=== PATIENT | male | born 1965 | race African-American/Black ===

== ENCOUNTER 2018-08-17 04:16 | Inpatient (IN) | payer OTHER ==
[~2018-08-17] VITALS: Ht 165.1 cm; Wt 52.2 kg
[2018-08-17] VITALS (38 sets, daily range): BP systolic 99–229; BP diastolic 64–142
[2018-08-17 04:28] LABS: BE(vivo) -9.1 mmol/L (-2 to +3); HCO3 28.4 mmol/L (22.0-26.0); PO2 313.9 mmHg (80.0-100.0); sO2 99.3 % (92.0-98.0)
[2018-08-17 04:29] LABS: pH 6.915 (7.360-7.450)
[2018-08-17 04:30] LABS: PCO2 143.2 mmHg (35.0-45.0)
[2018-08-17 04:44] LABS: ABSOLUTE NEUTROPHILS 4.5 thou/uL (1.4-8.2); BASOPHILS 1.1 % (0.0-2.0); EOSINOPHILS 6.1 % (0.0-3.0); HEMATOCRIT 46.6 % (42.0-52.0); HEMOGLOBIN 15.7 gm/dL (14.0-18.0); LYMPHOCYTES 38.4 % (24.0-44.0); MCH 34.1 pg (26.0-34.0); MCHC 33.6 g/dL (28.0-37.0); MCV 101.2 fL (80.0-100.0); MONOCYTES 10.8 % (1.0-8.0); PLATELET COUNT 359 thou/uL (150-400); POLYS 43.6 % (36.0-66.0); RDW 14.1 % (10.5-14.5); WBC 10.4 thou/uL (4.0-11.0)
[2018-08-17 04:54] LABS: ANION GAP 9 mmol/L (7-16); BUN 11 mg/dL (7-18); CALCIUM 8.9 mg/dL (8.5-10.1); CHLORIDE 100 mmol/L (98-107); CO2 27 mmol/L (21-32); CREATININE 1.2 mg/dL (0.7-1.3); GLUCOSE 215 mg/dL (74-106); POTASSIUM 4.1 mmol/L (3.5-5.1); SODIUM 136 mmol/L (136-145)
--- NOTE | 2018-08-17 05:02 | NUR ---
STARTED NITRO IV AT 50MCG/MIN, TITRATED DOWN TO 10MCG/MIN AFTER MAP HAD REACHED 120. AT 0445 THE MAP HAD INCREASED TO 133 AND INCREASED THE NITRO TO 20MCG/MIN. AT 0500 THE NITRO WAS TITRATED DOWN TO 10MCG/MIN.
[2018-08-17 05:04] LABS: ALBUMIN 4.2 g/dL (3.4-5.0); SGOT 35 U/L (15-37); SGPT 27 U/L (30-65); TOTAL BILIRUBIN 0.3 mg/dL (<0.1-1.0); TOTAL PROTEIN 8.1 g/dL (6.4-8.2); TROPONIN-I <0.06 ng/mL (<0.06)
[2018-08-17 05:05] LABS: BE(vivo) -8.1 mmol/L (-2 to +3); HCO3 24.3 mmol/L (22.0-26.0); PO2 284.4 mmHg (80.0-100.0); sO2 99.4 % (92.0-98.0)
[2018-08-17 05:06] LABS: PCO2 83.7 mmHg (35.0-45.0)
[2018-08-17 05:48] LABS: BE(vivo) -6.2 mmol/L (-2 to +3); HCO3 22.6 mmol/L (22.0-26.0); PCO2 57.8 mmHg (35.0-45.0); PO2 89.3 mmHg (80.0-100.0); sO2 94.9 % (92.0-98.0)
[2018-08-17 05:49] LABS: pH 7.211 (7.360-7.450)
--- NOTE | 2018-08-17 08:00 | NUR ---
PT IS AN ADMIT THIS AM FOR ACUTE HYPOIC RESPIRATORY FAILURE. HISTORY OF SMOKING, DRINKING, MJ AND COCAINE USE. ON BIPAP CURRENTLY AND OXYGEN SATURATION IS 98 PERCENT. LUNGS ARE CLEARM TO DIMINISHED. PT REPORTS SOB AT HOME AND HISTORY OF COPD AND ASTHMA INHALERS ARE NOT WORKING. ABDOMEN IS FLAT. BS POSTIVIE. SCDS ON BILATERAL. WILL COLLECT UA WHEN PT VOIDS AND SEND FOR UDS. COOPERATIVE AND APPROPRIATE AT THIS TIME. WILL CONTINUE TO ASSESS AND MONITOR PER NURSING
[2018-08-17 11:08] LABS: FOLIC ACID 42.7 ng/mL (8.6-58.9)
[2018-08-17 12:43] LABS: BE(vivo) -4.3 mmol/L (-2 to +3); HCO3 22.8 mmol/L (22.0-26.0); PCO2 49.5 mmHg (35.0-45.0); PO2 85.7 mmHg (80.0-100.0); sO2 95.3 % (92.0-98.0)
[2018-08-17 12:44] LABS: pH 7.282 (7.360-7.450)
[2018-08-17 15:10] LABS: URINE BILIRUBIN NEGATIVE (Negative); URINE BLOOD NEGATIVE (Negative); URINE CLARITY CLEAR; URINE COLOR YELLOW; URINE GLUCOSE-RANDOM* NEGATIVE (Negative); URINE KETONES NEGATIVE (Negative); URINE LEUKOCYTES NEGATIVE (Negative); URINE NITRITE NEGATIVE (Negative); URINE PROTEIN (DIPSTICK) 2+ (Negative); URINE SPECIFIC GRAVITY >= 1.030 (1.005-1.035); URINE UROBILINOGEN 0.2 E.U./dl (0.2-1.0)
--- NOTE | 2018-08-17 15:15 | EKG ---
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: selena : 1965 Requested By: Elba Crews Order Number: [id number] MD: Vidal Desouza Measurements Intervals [place] Rate: 117 P: 87 VT: 124 QRS: 21 QRSD: 75 T: 72 QT: 334 QTc: 466 Interpretive Statements Sinus tachycardia Poor R wave progression Nonspecific ST and T wave abnormality Compared to ECG 04/03/2001 11:28:59 Heart rate is increased Nonspecific change in the ST and T-wave segments Poor R wave progression is now present Electronically Signed On 08-17-2018 15:15:31 CDT by Vidal Desouza [email or web address] ��������������������������������������������� <ELECTRONICALLY SIGNED> ���������������������������������������� By: Vidal Desouza MD, [facility] ��������������������������������������������� 08/17/18 1515 0448 0448 Vidal Desouza MD, [facility] /EPI
[2018-08-17 15:17] LABS: AMP/METHAMP Negative (Negative); BARBITURATES Negative (Negative); BENZODIAZEPINES Negative (Negative); COCAINE POSITIVE (Negative); METHADONE Negative (Negative); OPIATES Negative (Negative); PCP Negative (Negative)
[2018-08-17] MEDS ORDERED: VENTOLIN HFA 1818 GM INH (15:17)
[2018-08-17] MEDS ORDERED: AMLODIPINE BESY10 MG PO (15:18)
[2018-08-17] MEDS ORDERED: INDOMETHACIN 5050 M1 PO (15:20)
[2018-08-17] MEDS ORDERED: ALBUTEROL2.5 MG/0.1 INH (15:26)
[2018-08-17 15:32] LABS: BACTERIA 1-9 Few /HPF (None Seen); CASTS None Seen /LPF (None Seen); CRYSTALS None Seen /LPF (None Seen); SQUAMOUS 0-3 Few /LPF (0-3); URINE RBC 0-2 Rare /HPF (0-2)
[2018-08-17 15:33] LABS: URINE WBC None Seen /HPF (0-5)
--- NOTE | 2018-08-17 16:36 | NUR ---
PT IS ALERT AND ORIENTED X4. ON BIPAP TODAY AND OXYGEN SATURATION 100 PERCENT. CAME IN FOR RESPIRATORY FAILURE. BREATHING TREATMENTS DONE. ABDOMEN IS SOFT AND BOWEL SOUNDS ACTIVE. SCDS ON BILATERAL. SEVERAL ALERGIES LISTED IN THE COMPUTER. OBTAINED FROM HIS DR. OFFICE BECAUSE HE COULD NOT REMEMBER HIS ALERGTIES. LUNGS ARE WHEEZZY. BANANA BAG GIVEN CIWA 0 . PT DRINKS EVERY DAY. NO TREMORS OR ANXIETY NOTED AT THIS TIME. WILL CONTINUE TO ASSESS AND MONITOR PER NURSING
--- NOTE | 2018-08-17 23:17 | NUR ---
PT AOX4. ON 4L HF, GIVEN A BREAK FROM THE BIPAP, STAT ABOVE 90% ON HF. ST ON MONITOR. VSS. AFEBRILE. VOIDS PER URINAL. PT EDUCATED ABOUT ALCOHOL CESSATION. PT STATED HE DRINK 1/2 PINT OF LETY DAILY. PT CURRENTLY IN BED. FALL PRECAUTIONS IN PLACE, REPORT GIVEN SUSY SCHULZ, WILL CONTINUE TO MONITOR PT.
[2018-08-18] VITALS (32 sets, daily range): BP systolic 104–183; BP diastolic 57–136
[2018-08-18 05:12] LABS: HEMATOCRIT 42.3 % (42.0-52.0); MCH 32.9 pg (26.0-34.0); MCHC 32.4 g/dL (28.0-37.0); MCV 101.4 fL (80.0-100.0); RBC 4.17 mil/uL (4.50-6.00); RDW 14.3 % (10.5-14.5); WBC 22.1 thou/uL (4.0-11.0)
[2018-08-18 05:13] LABS: BE(vivo) -4.6 mmol/L (-2 to +3); HCO3 21.5 mmol/L (22.0-26.0); PCO2 43.4 mmHg (35.0-45.0); sO2 98.2 % (92.0-98.0)
[2018-08-18 05:14] LABS: HEMOGLOBIN 13.7 gm/dL (14.0-18.0); PLATELET COUNT 230 thou/uL (150-400)
[2018-08-18 05:17] LABS: pH 7.313 (7.360-7.450)
--- NOTE | 2018-08-18 05:26 | NUR ---
ASSUMED PT CARE AT 2315 WITH REPORT TAKEN, NO SIGN OF DISTRESS NOTED IN PT, PT IS ALERT AND ORIENTED. SCHEDULED MEDS ALREADY ADMINISTERED. DENIES ANY NEEDS AT THIS TIME. BREATHING IS STABLE AND PT IS ON BIPAP THROUGHOUT THE NIGHT. PT IS STABLE ON THE BIPAP. DENIES ANY FURTHER NEEDS AT THIS TIME.
[2018-08-18 05:27] LABS: CALCIUM 9.1 mg/dL (8.5-10.1); CREATININE 1.2 mg/dL (0.7-1.3); MAGNESIUM 2.4 mg/dL (1.8-2.4)
[2018-08-18 05:39] LABS: ABSOLUTE NEUTROPHILS 20.6 thou/uL (1.4-8.2)
[2018-08-18 05:40] LABS: PLATELET ESTIMATE NORMAL
--- NOTE | 2018-08-18 13:27 | NUR ---
INITIAL ASSESSMENT: Pt evaluated for d/c planning needs. Reviewed chart and spoke with nurse and pt. Pt is alert and oriented. Pt lives in house with spouse and 3 children. Pt has cane and nebulizer at home. 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 Pt said he has gout and has a lot of stress in his personal life. Pt said he uses crack cocaine which he rolls up in his marijuana cigarettes and smokes while his children are not in the room. Pt plans on returning home on d/c from hospital. Will remain available to assist as needed.
[2018-08-19] VITALS (22 sets, daily range): BP systolic 96–182; BP diastolic 41–102
--- NOTE | 2018-08-19 05:34 | NUR ---
ASSUMED PT CARE AT 1900 WITH NO SIGN OF DISTRESS NOTED. PT IS ALERT AND ORIENTED. SCHEDULED MEDS ADMINISTERED TO PT. PT TOLERATED PO INTAKE. ASSESSMENT DOCUMENTED. PT IS STABLE AND OFF THE BIPAP. PT IS ON NASAL CANNULA. DENIES ANY FURTHER NEEDS AT THIS TIME.
--- NOTE | 2018-08-19 16:11 | NUR ---
ASSUMED CARE OF PT AT SHIFT CHANGE. ASSESSMENTS CHARTED. MEDS GIVEN PER JUN. PT ALERT AND ORIENTED, VSS, O2 SATS WNL ON ROOM AIR, PT GETTING SCHEDULED BREATHING TREATMENTS PER RT. PT UP AD SHOAIB, C/O PAIN, MANAGED WITH PO PAIN MEDS. APPETITE ADEQUATE. TRANSFER ORDERS FOR PT TO TELE, REPORT CALLED TO NURSE DE JESUS ON 3 AT APPROX 1545. PT TRANSFERRED TO [facility] BY NURSING STAFF AT APPROX 1600. TELE REMOVED, O2 MONITOR REMOVED. PT LEFT UNIT WITH ALL BELONGINGS.
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
[2018-08-20 00:35] VITALS: BP 152/82
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
[2018-08-20 05:30] VITALS: BP 150/79
[2018-08-20 07:09] VITALS: BP 148/98
[2018-08-20] MEDS ORDERED: NORCO 10-325 T1 EACH PO (10:12)
[2018-08-20] MEDS ORDERED: PREDNISONE 10 M10 MG PO (10:12)
--- NOTE | 2018-08-20 10:42 | NUR ---
PATIENT WILL BE DISCHARGED HOME AT THIS TIME. HE IS ALERT ORIENTED X4. PAIN MEDICATION ADMINISTERED EARLIER IS EFFECTIVE HE IS NOW SLEEPING. RESPIRATIONS NON LABORED. UP AD SHOAIB. FAMILY WILL BE HERE TO PICK HIM UP.
[2018-08-20 10:44] VITALS: BP 148/98
== END 2018-08-20 11:47 | disposition home or self-care (01) | DRG 189 ==
LOC: ER 04:16 → ICU 05:53 → EROBS 05:53 → ICU 06:36 → 3W 08-19 16:11
PROVIDERS: Internal Medicine Pulmonary Disease; Nurse Practitioner; Student in an Organized Health Care Education/Training Program; ADMIT Hospitalist
PROC: 5A09357 Assistance with Respiratory Ventilation, Less than 24 Consecutive Hours, Continuous Positive Airway Pressure (ICD-10-PCS; principal; 2018-08-17)
PROC: 5A09357 Assistance with Respiratory Ventilation, Less than 24 Consecutive Hours, Continuous Positive Airway Pressure (ICD-10-PCS; 2018-08-18)
DX: J96.21 Acute and chronic respiratory failure with hypoxia (principal); J44.1 Chronic obstructive pulmonary disease with (acute) exacerbation; J45.901 Unspecified asthma with (acute) exacerbation; Z68.1 Body mass index [BMI] 19.9 or less, adult; J96.22 Acute and chronic respiratory failure with hypercapnia; I16.0 Hypertensive urgency; I10 Essential (primary) hypertension; J45.909 Unspecified asthma, uncomplicated; M10.9 Gout, unspecified; F19.10 Other psychoactive substance abuse, uncomplicated; F17.210 Nicotine dependence, cigarettes, uncomplicated; Z79.899 Other long term (current) drug therapy
CPT/HCPCS: 10078; 10779

== ENCOUNTER 2018-10-10 21:24 | Inpatient (IN) | payer OTHER ==
[~2018-10-10] VITALS: Ht 165.1 cm; Wt 52.5 kg
[~2018-10-10 21:24] MED LIST: ALBUTEROL2.5 MG/0.1 INH; AMLODIPINE BESY10 MG PO; INDOMETHACIN 5050 M1 PO; NORCO 10-325 T1 EACH PO; PREDNISONE 10 M10 MG PO; VENTOLIN HFA 1818 GM INH
[2018-10-10 21:25] VITALS: BP 143/92
[2018-10-10 21:49] LABS: ABSOLUTE NEUTROPHILS 5.2 thou/uL (1.4-8.2); BASOPHILS 1.1 % (0.0-2.0); EOSINOPHILS 9.6 % (0.0-3.0); HEMATOCRIT 45.8 % (42.0-52.0); HEMOGLOBIN 15.3 gm/dL (14.0-18.0); LYMPHOCYTES 29.2 % (24.0-44.0); MCH 33.2 pg (26.0-34.0); MCHC 33.4 g/dL (28.0-37.0); MCV 99.3 fL (80.0-100.0); MONOCYTES 9.6 % (1.0-8.0); PLATELET COUNT 329 thou/uL (150-400); POLYS 50.5 % (36.0-66.0); RBC 4.61 mil/uL (4.50-6.00); RDW 14.2 % (10.5-14.5); WBC 10.4 thou/uL (4.0-11.0)
[2018-10-10 21:55] LABS: ANION GAP 8 mmol/L (7-16); BUN 19 mg/dL (7-18); CHLORIDE 100 mmol/L (98-107); CO2 28 mmol/L (21-32); CREATININE 1.2 mg/dL (0.7-1.3); GLUCOSE 102 mg/dL (74-106); SODIUM 136 mmol/L (136-145)
[2018-10-10 21:57] LABS: BE(vivo) 1.6 mmol/L (-2 to +3); PCO2 62.8 mmHg (35.0-45.0); sO2 70.1 % (92.0-98.0)
[2018-10-10 21:58] LABS: PO2 41.3 mmHg (80.0-100.0); pH 7.297 (7.360-7.450)
[2018-10-10 22:00] LABS: APTT 32.7 Seconds (24.5-32.8); INR 1.1
[2018-10-10 22:04] LABS: MAGNESIUM 2.1 mg/dL (1.8-2.4); SGOT 33 U/L (15-37); SGPT 32 U/L (30-65); TOTAL BILIRUBIN 0.3 mg/dL (<0.1-1.0); TROPONIN-I <0.06 ng/mL (<0.06)
[2018-10-10 22:31] LABS: AMP/METHAMP Negative (Negative); BARBITURATES Negative (Negative); BENZODIAZEPINES Negative (Negative); COCAINE POSITIVE (Negative); METHADONE Negative (Negative); OPIATES Negative (Negative); PCP Negative (Negative)
[2018-10-10 23:35] LABS: BE(vivo) -1.3 mmol/L (-2 to +3); HCO3 27.6 mmol/L (22.0-26.0); PCO2 64.5 mmHg (35.0-45.0); PO2 92.7 mmHg (80.0-100.0); sO2 95.7 % (92.0-98.0)
[2018-10-10 23:36] LABS: pH 7.249 (7.360-7.450)
[2018-10-11] VITALS (7 sets, daily range): BP systolic 116–155; BP diastolic 77–89
--- NOTE | 2018-10-11 00:17 | NUR ---
PT WAS QUESTIONED REGARDING FENTANYL ALLERGY PRIOR TO ADMINISTRATION. REPORTS HE HAS HAD IT WITHOUT COMPLICATIONS,
[2018-10-11] MEDS ORDERED: CREON DR 24,001 EACH PO (01:10)
[2018-10-11 04:01] LABS: CALCIUM 8.6 mg/dL (8.5-10.1); CREATININE 1.3 mg/dL (0.7-1.3); POTASSIUM 4.7 mmol/L (3.5-5.1)
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
--- NOTE | 2018-10-11 08:09 | NUR ---
PT ADMITTED FROM ER TO ROOM 212 WITH BANNANA BAG INFUSINGIN L FA, PT ON BIPAP SATATED HE IS FEELING MUCH BETTER EXPT FOR HIS PAIN PRN PAINS MEDS GIVEN ORDERED AND PT SLEEPING QUIETLY, VOIDING PER URINAL, VSS, CIWA ASSESSMENTS NEGATIVE, REPORT GIVEN TO NEXT SHIFT WILL CON'T TO MONITOR.
--- NOTE | 2018-10-11 12:54 | EKG ---
[place] [address] [place] [address] ELECTROCARDIOGRAM REPORT Name: LUDWIG DENG Room #: 212-P ADM IN M.R.#: [id number] ������������������ Admission: 10/10/18 ������������������ Attend Phys: Nichelle Vu Discharge: ������������������ Date of : 65 Report #: [id number] ����������������������������������������������������������������� [id number] THIS REPORT FOR: //name// [facility] ED Test Date: 2018-10-10 Test Time: 21:46:43 Pat Name: LUDWIG DENG Department: Room: 212 Gender: M Netting Weaver: [email or web address] : 1965 Requested By: Julio C Ernst Order Number: [id number] MD: Vidal Desouza Measurements Intervals [place] Rate: 98 P: 85 AR: 116 QRS: 14 QRSD: 86 T: 85 QT: 339 QTc: 433 Interpretive Statements Sinus rhythm Borderline short AR interval Nonspecific T wave abnormality Compared to ECG 08/17/2018 04:48:30 T-wave abnormality now present Sinus tachycardia no longer present Electronically Signed On 10-11-2018 12:54:19 CDT by Vidal Desouza [email or web address] ��������������������������������������������� <ELECTRONICALLY SIGNED> ���������������������������������������� By: Vidal Desouza MD, [facility] ��������������������������������������������� 10/11/18 1254 2146 2146 Vidal Desouza MD, [facility] /EPI
[2018-10-11] MEDS ORDERED: IPRAT-ALBUT 0.5-3 ML INH (14:49)
[2018-10-11] MEDS ORDERED: IBUPROFEN 400400 M2 PO (15:29)
[2018-10-12 04:11] VITALS: BP 159/84
--- NOTE | 2018-10-12 05:26 | NUR ---
ASSUMED PT CARE AT 1900 WITH NO SIGN OF DISTRESS NOTED. PT IS ALERT AND ORIENTED. ASSESSMENT COMPLETED AND CHARTED. SCHEDULED MEDS ADMINISTERED TO PT. DENIES ANY NEEDS. FALL PRECAUTION IN PLACE. VITAL SIGNS STABLE. PT IS ON OXYGEN. DENIES ANY FURTHER NEEDS AT THIS TIME
[2018-10-12 08:41] VITALS: BP 141/78
[2018-10-12 16:00] VITALS: BP 156/86
--- NOTE | 2018-10-12 16:15 | NUR ---
PT CARE ASSUMED APPROX 0700. PT ALERT AND ORIENTED X4. DENIES SOA. VSS. C/O CHRONIC PAIN TO NECK AND BACK. REPORTS ADEQUATE PAIN MANAGEMENT WITH MEDS AND REPOSITIONING. PT COMPLIANT WITH ALL CARES. UP INDEPENDENTLY. STEADY GAIT. NO S/S OF WITHDRAWL NOTED. TOLERATING POC. PT WEANED TO RA AND LIBERATED FROM BIPAP. NO DISTRESS NOTED.
--- NOTE | 2018-10-12 17:11 | NUR ---
met with patient he is independent with adls. Lives with has 3 children youngest in high school. he rec disability, usu goes to [place] but transferring care to [facility]. He has hx of smoking and reports he does use THC. 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 He reports less use at this time. Plan home independently. No needs from casemgt. Gave scheduling number as patient wants to have his colonoscopy here at [facility]. patient has nebulizer and inhalers at home. no further needs
[2018-10-12 21:01] VITALS: BP 159/83
[2018-10-13 04:10] LABS: CALCIUM 9.2 mg/dL (8.5-10.1); CREATININE 1.3 mg/dL (0.7-1.3); POTASSIUM 4.5 mmol/L (3.5-5.1)
[2018-10-13 04:24] LABS: HEMATOCRIT 41.1 % (42.0-52.0); HEMOGLOBIN 13.7 gm/dL (14.0-18.0); MCH 33.3 pg (26.0-34.0); MCHC 33.3 g/dL (28.0-37.0); RBC 4.11 mil/uL (4.50-6.00); RDW 14.3 % (10.5-14.5); WBC 26.2 thou/uL (4.0-11.0)
[2018-10-13 05:03] VITALS: BP 150/87
[2018-10-13 05:59] VITALS: BP 150/87
--- NOTE | 2018-10-13 06:00 | NUR ---
ASSUMED PT CARE AT 1900 WITH NO SIGN OF DISTRESS NOTED .PT IS STABLE. SCHEDULED MEDS ADMINISTERED TO PT, DENIES ANY NEED AT THIS TIME, PT IS WEANED OFF TO ROOM AIR, PT IS STABLE ON ROOM AIR. DENIES ANY NEED AT THIS TIME.
[2018-10-13 07:10] VITALS: BP 163/91
[2018-10-13] MEDS ORDERED: PREDNISONE 10 M10 MG PO (11:20)
[2018-10-13] MEDS ORDERED: CEFUROXIME500 MG PO (11:20)
[2018-10-13] MEDS ORDERED: VENTOLIN HFA 1818 GM INH (11:21)
[2018-10-13] MEDS ORDERED: MUCINEX600 MG PO (11:23)
[2018-10-13] MEDS ORDERED: AMLODIPINE BESY10 MG PO (11:23)
[2018-10-13] MEDS ORDERED: NORCO 10-325 T1 EACH PO (11:23)
[2018-10-13] MEDS ORDERED: CREON DR 24,001 EACH PO (11:24)
[2018-10-13] MEDS ORDERED: VITAMIN B-1100 M2 PO (11:24)
[2018-10-13 12:00] VITALS: BP 156/101
[2018-10-13 14:00] VITALS: BP 156/101
--- NOTE | 2018-10-13 14:20 | NUR ---
ASSESSMENT CHARTED, PATIENT ALERT AND ORIENTED, VSS, UP AD SHOAIB TO BATHROOM, PATIENT DISCHARGED TO HOME, GIVEN DISCHARGE INSTRUCTIONS AND PRESCRIPTIONS, STATED UNDERSTANDING. ESCORTED TO ER DEPT TO WAIT FOR CAB.
[2018-10-14 05:05] LABS: GLYCOHEMOGLOBIN (HGB A1C) 6.7 % (4.8-5.6)
[2018-10-14 23:06] LABS: ADENOVIRUS Negative (Negative); INFLUENZA A Negative (Negative); INFLUENZA B Negative (Negative); METAPNEUMOVIRUS Negative (Negative); PARAINFLUENZA 1 Negative (Negative); PARAINFLUENZA 2 Negative (Negative); PARAINFLUENZA 3 Negative (Negative); RHINOVIRUS Negative (Negative); RSV A Negative (Negative); RSV B Negative (Negative)
== END 2018-10-13 14:22 | disposition home or self-care (01) | DRG 189 ==
LOC: ER 21:24 → 2N 22:31 → EROBS 22:31 → 2N 10-11 00:39
PROVIDERS: Emergency Medicine; Hospitalist; Internal Medicine; Nurse Practitioner Acute Care; Nurse Practitioner Family; ADMIT Hospitalist
PROC: 5A09357 Assistance with Respiratory Ventilation, Less than 24 Consecutive Hours, Continuous Positive Airway Pressure (ICD-10-PCS; principal; 2018-10-10)
PROC: 5A09357 Assistance with Respiratory Ventilation, Less than 24 Consecutive Hours, Continuous Positive Airway Pressure (ICD-10-PCS; 2018-10-11)
DX: J96.21 Acute and chronic respiratory failure with hypoxia (principal); K86.1 Other chronic pancreatitis; J44.1 Chronic obstructive pulmonary disease with (acute) exacerbation; M35.1 Other overlap syndromes; J45.909 Unspecified asthma, uncomplicated; M10.9 Gout, unspecified; I10 Essential (primary) hypertension; F10.10 Alcohol abuse, uncomplicated; F12.90 Cannabis use, unspecified, uncomplicated; F14.90 Cocaine use, unspecified, uncomplicated; F17.210 Nicotine dependence, cigarettes, uncomplicated; J96.22 Acute and chronic respiratory failure with hypercapnia; F19.10 Other psychoactive substance abuse, uncomplicated; Z71.51 Drug abuse counseling and surveillance of drug abuser; Z88.6 Allergy status to analgesic agent; Z88.8 Allergy status to other drugs, medicaments and biological substances; Z79.82 Long term (current) use of aspirin; Z79.899 Other long term (current) drug therapy
CPT/HCPCS: 10081

== ENCOUNTER 2019-11-22 09:40 | Emergency (ER) | payer OTHER ==
[~2019-11-22] VITALS: Ht 165.1 cm; Wt 45.8 kg
[~2019-11-22 09:40] MED LIST changes: +CEFUROXIME500 MG PO; +CREON DR 24,001 EACH PO; +IBUPROFEN 400400 M2 PO; +IPRAT-ALBUT 0.5-3 ML INH; +MUCINEX600 MG PO; +VITAMIN B-1100 M2 PO
[2019-11-22 10:35] LABS: ABSOLUTE NEUTROPHILS 3.9 thou/uL (1.4-8.2); BASOPHILS 0.5 % (0.0-2.0); EOSINOPHILS 2.1 % (0.0-3.0); HEMATOCRIT 43.2 % (42.0-52.0); HEMOGLOBIN 14.5 gm/dL (14.0-18.0); LYMPHOCYTES 23.1 % (24.0-44.0); MCH 35.5 pg (26.0-34.0); MCHC 33.7 g/dL (28.0-37.0); MCV 105.6 fL (80.0-100.0); MONOCYTES 10.9 % (1.0-8.0); PLATELET COUNT 176 thou/uL (150-400); POLYS 63.4 % (36.0-66.0); RBC 4.09 mil/uL (4.50-6.00); RDW 14.5 % (10.5-14.5); WBC 6.1 thou/uL (4.0-11.0)
[2019-11-22 10:36] LABS: ANION GAP 10 mmol/L (7-16); BUN 12 mg/dL (7-18); CHLORIDE 101 mmol/L (98-107); CO2 29 mmol/L (21-32); CREATININE 1.5 mg/dL (0.7-1.3); GLUCOSE 236 mg/dL (74-106); POTASSIUM 3.8 mmol/L (3.5-5.1); SODIUM 140 mmol/L (136-145)
[2019-11-22 10:45] LABS: APTT 29.2 Seconds (24.5-32.8); INR 1.1; PROTIME 10.9 Seconds (9.3-11.4); TROPONIN-I <0.06 ng/mL (<0.06)
[2019-11-22] MEDS ORDERED: METFORMIN HCL500 M3 PO (11:18)
[2019-11-22] MEDS ORDERED: LIPITOR40 MG PO (11:18)
[2019-11-22] MEDS ORDERED: FOLIC ACID1 MG PO (11:18)
[2019-11-22] MEDS ORDERED: VITAMIN B-121000 MC2 PO (11:19)
--- NOTE | 2019-11-22 15:50 | EKG ---
[facility] [place] [address] ELECTROCARDIOGRAM REPORT Name: LUDWIG DENG Room #: [facility]#: [id number] Admission: 11/22/19 Attend Phys: Discharge: Date of : 65 Report #: [id number] THIS REPORT FOR: cc: Roseanna Barrera K. 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[employer] : 1965 Requested By: Allen Maxwell Order Number: [id number] MD: Miguel Donis Measurements Intervals [place] Rate: 86 P: 77 CO: 127 QRS: 52 QRSD: 88 T: 80 QT: 360 QTc: 431 Interpretive Statements Sinus rhythm Anterior infarct, old Nonspecific T abnormalities, lateral leads Compared to ECG 10/10/2018 21:46:43 Myocardial infarct finding now present T-wave abnormality still present Electronically Signed On 11-22-2019 15:50:45 CDT by Miguel Donis [email or web address] <ELECTRONICALLY SIGNED> By: Miguel Donis MD 11/22/19 1550 1035 1035 Miguel Donis MD /EPI
[2019-11-22] MEDS ORDERED: PREDNISONE 20 M20 MG PO (16:26)
[2019-11-22] MEDS ORDERED: NORCO 5-325 TA1 EAC2 PO (16:26)
[2019-11-22 22:12] VITALS: BP 165/91
== END 2019-11-22 17:55 | disposition home or self-care (01) ==
LOC: ER 09:40
PROVIDERS: Emergency Medicine
DX: R19.7 Diarrhea, unspecified (principal); R10.30 Lower abdominal pain, unspecified; J44.9 Chronic obstructive pulmonary disease, unspecified; I10 Essential (primary) hypertension; M10.9 Gout, unspecified; Z79.899 Other long term (current) drug therapy; Z79.1 Long term (current) use of non-steroidal anti-inflammatories (NSAID); Z88.6 Allergy status to analgesic agent; Z88.8 Allergy status to other drugs, medicaments and biological substances

== ENCOUNTER → 2020-01-12 | Outpatient (CLI) | payer OTHER ==
[~2020-01-12] MED LIST changes: +FOLIC ACID1 MG PO; +LIPITOR40 MG PO; +METFORMIN HCL500 M3 PO; +NORCO 5-325 TA1 EAC2 PO; +PREDNISONE 20 M20 MG PO; +VITAMIN B-121000 MC2 PO
== END ==
LOC: LAB 12:00
PROVIDERS: ATTEND Anesthesiology
DX: Z01.812 Encounter for preprocedural laboratory examination (principal); Z20.828 Contact with and (suspected) exposure to other viral communicable diseases

== ENCOUNTER 2020-06-07 11:40 | Emergency (ER) | payer OTHER ==
[~2020-06-07] VITALS: Ht 165.1 cm; Wt 42.2 kg
[2020-06-07 12:01] LABS: URINE BILIRUBIN NEGATIVE (Negative); URINE BLOOD NEGATIVE (Negative); URINE CLARITY CLEAR; URINE COLOR YELLOW; URINE GLUCOSE-RANDOM* NEGATIVE (Negative); URINE KETONES NEGATIVE (Negative); URINE LEUKOCYTES-REFLEX NEGATIVE (Negative); URINE NITRITE-REFLEX NEGATIVE (Negative); URINE PROTEIN (DIPSTICK) NEGATIVE (Negative); URINE SPECIFIC GRAVITY 1.025 (1.005-1.035)
[2020-06-07 12:58] LABS: ABSOLUTE NEUTROPHILS 3.7 thou/uL (1.4-8.2); EOSINOPHILS 6.4 % (0.0-3.0); HEMATOCRIT 40.8 % (42.0-52.0); HEMOGLOBIN 13.6 gm/dL (14.0-18.0); LYMPHOCYTES 25.7 % (24.0-44.0); MCH 34.9 pg (26.0-34.0); MCHC 33.4 g/dL (28.0-37.0); MCV 104.3 fL (80.0-100.0); MONOCYTES 8.6 % (1.0-8.0); PLATELET COUNT 189 thou/uL (150-400); POLYS 58.3 % (36.0-66.0); RBC 3.91 mil/uL (4.50-6.00); RDW 14.9 % (10.5-14.5); WBC 6.4 thou/uL (4.0-11.0)
[2020-06-07 13:09] LABS: CALCIUM 8.8 mg/dL (8.5-10.1); CREATININE 1.4 mg/dL (0.7-1.3); POTASSIUM 4.3 mmol/L (3.5-5.1)
[2020-06-07 13:15] LABS: ALBUMIN 3.7 g/dL (3.4-5.0); TOTAL BILIRUBIN 1.4 mg/dL (0.2-1.0); TOTAL PROTEIN 6.5 g/dL (6.4-8.2)
[2020-06-07 14:30] VITALS: BP 123/70
== END 2020-06-07 14:38 | disposition home or self-care (01) ==
LOC: ER 11:40
PROVIDERS: Emergency Medicine
DX: R19.00 Intra-abdominal and pelvic swelling, mass and lump, unspecified site (principal); R53.83 Other fatigue; R63.4 Abnormal weight loss; J44.9 Chronic obstructive pulmonary disease, unspecified; I10 Essential (primary) hypertension; F17.210 Nicotine dependence, cigarettes, uncomplicated; Z68.1 Body mass index [BMI] 19.9 or less, adult; Z79.899 Other long term (current) drug therapy; Z88.6 Allergy status to analgesic agent; Z88.8 Allergy status to other drugs, medicaments and biological substances

== ENCOUNTER → 2020-06-07 | Outpatient (CLI) | payer OTHER | LOC: CAT 08:40 | PROVIDERS: ATTEND Family Medicine | DX: K80.20 Calculus of gallbladder without cholecystitis without obstruction (principal); R79.89 Other specified abnormal findings of blood chemistry; R63.4 Abnormal weight loss; K86.1 Other chronic pancreatitis ==

== ENCOUNTER → 2020-08-14 | Outpatient (CLI) | payer OTHER ==
[2020-08-14 10:37] LABS: CREATININE 1.2 mg/dL (0.7-1.3)
== END ==
LOC: MRI 08:55 → ULTRA 09:45
PROVIDERS: ATTEND Family Medicine
DX: R10.9 Unspecified abdominal pain (principal); R79.89 Other specified abnormal findings of blood chemistry

== ENCOUNTER → 2020-08-20 | Outpatient (CLI) | payer OTHER | LOC: ULTRA 08-16 12:21 | PROVIDERS: ATTEND Family Medicine | DX: I70.0 Atherosclerosis of aorta (principal); I70.8 Atherosclerosis of other arteries; R10.9 Unspecified abdominal pain; R79.89 Other specified abnormal findings of blood chemistry; K86.1 Other chronic pancreatitis; K86.89 Other specified diseases of pancreas; K80.20 Calculus of gallbladder without cholecystitis without obstruction; K83.8 Other specified diseases of biliary tract ==

== ENCOUNTER → 2020-09-25 | Outpatient (CLI) | payer OTHER | LOC: MRI 09-17 11:31 | PROVIDERS: ATTEND Family Medicine | DX: K86.89 Other specified diseases of pancreas (principal); R63.4 Abnormal weight loss ==

== ENCOUNTER 2020-11-30 22:09 | Observation (INO) | payer OTHER ==
[~2020-11-30] VITALS: Ht 165.1 cm; Wt 56.7 kg
--- NOTE | ~2020-11-30 | EMS ---
[place] [id number] [facility] Patient Care Report Name: LUDWIG DENG Room #: 458-P [facility]#: [id number] Admission: 12/01/20 Attend Phys: Edilberto Murphy MD Discharge: 12/02/20 Date of : 65 Report #: [id number] THIS REPORT FOR: //name// Report Transmitted: 12/03/2020 11:26 EMS Care Summary [place], [place] Incident [id number] @ 11/30/2020 21:37 Incident [address] [place] [address] Patient SOURAV DENG Male, 55 Years 1965 Patient Address [address] [place] [address] Patient History Chronic Obstructive Pulmonary Disease (COPD),Hypertension (HTN),Pancreatitis, Patient Allergies Toradol,Tramadol, Patient Medications Gabapentin, Lisinopril, Folic acid, Chief Complaint Chest Pain Disposition Transported No Lights/[place] Dispatch Reason Chest Pain (Non-Traumatic) Transported To [facility] Narrative pt states that he has been having c/p since this morning. pt states that his pain started about 1312-4021. pt describes his pain as crushing in nature. pain radiates to pts right arm and back.pt states that he took 324mg of aspirin about an hour prior to ems arrival. pt states that he has had this type of pain [address] [place] [address] EMS Patient Care Report Name: LUDWIG DENG Room #: 458-[facility]..#: [id number] Admission: 12/01/20 Attend Phys: Edilberto Murphy MD Discharge: 12/02/20 Date of : 65 Report #: [id number] before just not this intense. upon ems arrival, pt found sitting upright on couch. pt w/ p42 crew. pt assisted to stretcher by ems and p42 crew. pt secured to stretcher using seat belts. Initial Vitals @21:51P: 91,CO: 4,SpO2: 99,MS Suspected: true @22:04P: 99,BP: 158/83,SpO2: 100, @22:03P: 101,CO: 5,SpO2: 99, @21:52P: 88, @21:47R: 18,BP: 171/88,Pain: 10/10,GCS: 15,SpO2: 94,Revised Trauma: 12, Assessments @21:44MENTAL:Time Oriented,Person Oriented,Place Oriented,Event Oriented,SKIN:HEENT:Eyes: Right Pupil: 3-mm,Eyes: Left Pupil: 3-mm,LUNG SOUNDS:ABDOMEN:PELVIS//GI:EXTREMITIES:Capillary Refill: Left Upper: < 2 Sec,PULSE:Radial: 2+ Normal,NEURO: Impression Chest Pain / Discomfort Procedures @21:44ALS AssessmentResponse: UnchangedSucceeded@21:54Saline Lock 10cc (18 ga) Site: Antecubital-LeftResponse: UnchangedSucceeded@21:56Nitrostat - 0.4 Milligrams (mg) - SublingualResponse: Unchanged@21:5112-Lead ECGResponse: UnchangedFailed@21:5212-Lead ECGResponse: UnchangedSucceeded Timeline 21:36,Call Received 21:36,Dispatch Notified 21:37,Dispatched 21:37,En Route 21:42,On Scene 21:44,At Patient 21:44,ALS Assessment,Response: UnchangedSucceeded, 21:47,BP: 171/88 M,PULSE: ,RR: 18 R,SPO2: 94 Ox,ETCO2: ,BG: ,PAIN: 10,GCS: 15, 21:51,12-Lead ECG,Response: UnchangedFailed, 21:51,BP: / M,PULSE: 91,RR: R,SPO2: 99 Ox,ETCO2: ,BG: ,PAIN: ,GCS: , 21:52,12-Lead ECG,Response: UnchangedSucceeded, 21:52,BP: / M,PULSE: 88,RR: R,SPO2: Ox,ETCO2: ,BG: ,PAIN: ,GCS: , 21:54,Depart Scene 21:54,Saline Lock 10cc 18 ga Site: Antecubital-Left,Response: UnchangedSucceeded, 21:56,Nitrostat - 0.4 Milligrams (mg) - Sublingual,Response: Unchanged 22:03,BP: / M,PULSE: 101,RR: R,SPO2: 99 Ox,ETCO2: ,BG: ,PAIN: ,GCS: , [address] [address] EMS Patient Care Report Name: LUDWIG DENG Room #: 458-P [facility] Eleni MLuis AlbertoRLuis Alberto#: [id number] Admission: 12/01/20 Attend Phys: Edilberto Murphy MD Discharge: 12/02/20 Date of : 65 Report #: [id number] 22:04,BP: 158/83 M,PULSE: 99,RR: R,SPO2: 100 Ox,ETCO2: ,BG: ,PAIN: ,GCS: , 22:05,At Destination 22:19,Call Closed Disclaimer v1.1 Copyright 2020 [employer] This EMS Care Summary contains data elements from the applicable legal record (which may be displayed differently). It is designed to provide pertinent information for the following purposes: continuity of care, clinical quality, and state data reporting. The complete legal record is available to ED staff and administrators of the receiving hospital in [employer] Patient Tracker. All data is provided "as is."
[2020-11-30 22:10] VITALS: BP 158/98
[2020-11-30 23:19] LABS: ABSOLUTE NEUTROPHILS 6.9 thou/uL (1.4-8.2); BASOPHILS 0.5 % (0.0-2.0); EOSINOPHILS 2.9 % (0.0-3.0); HEMATOCRIT 39.8 % (42.0-52.0); HEMOGLOBIN 13.1 gm/dL (14.0-18.0); LYMPHOCYTES 18.4 % (24.0-44.0); MCH 34.3 pg (26.0-34.0); MCHC 32.8 g/dL (28.0-37.0); MCV 104.6 fL (80.0-100.0); MONOCYTES 14.4 % (1.0-8.0); PLATELET COUNT 305 thou/uL (150-400); POLYS 63.8 % (36.0-66.0); RBC 3.81 mil/uL (4.50-6.00); RDW 15.3 % (10.5-14.5); WBC 10.9 thou/uL (4.0-11.0)
[2020-12-01 02:37] LABS: HEMATOCRIT 36.7 % (42.0-52.0); HEMOGLOBIN 12.3 gm/dL (14.0-18.0); MCH 34.6 pg (26.0-34.0); MCHC 33.5 g/dL (28.0-37.0); MCV 103.4 fL (80.0-100.0); RBC 3.55 mil/uL (4.50-6.00); RDW 15.3 % (10.5-14.5); WBC 13.6 thou/uL (4.0-11.0)
[2020-12-01 02:58] LABS: ALBUMIN 3.2 g/dL (3.4-5.0); CALCIUM 8.7 mg/dL (8.5-10.1); TOTAL BILIRUBIN 0.5 mg/dL (0.2-1.0); TOTAL PROTEIN 6.8 g/dL (6.4-8.2)
[2020-12-01 03:01] LABS: POTASSIUM 2.9 mmol/L (3.5-5.1)
[2020-12-01 08:28] LABS: CHOLESTEROL 134 mg/dL (<200); HDL CHOLESTEROL 69 mg/dL (>40); LDL CHOLESTEROL 56 mg/dL (<100); TC:HDL 1.9 Ratio (Not establshd); TRIGLYCERIDE 48 mg/dL (<150); VLDL 10 mg/dL (<40)
[2020-12-01 08:59] LABS: CALCIUM 8.5 mg/dL (8.5-10.1); CREATININE 1.2 mg/dL (0.7-1.3); POTASSIUM 3.6 mmol/L (3.5-5.1)
[2020-12-01 16:39] VITALS: BP 146/75
[2020-12-01 17:20] VITALS: BP 144/91
--- NOTE | 2020-12-01 20:06 | NUR ---
PT TRANFERRED FROM ed INTO ROOM 458. c/o CHEST PAIN RUNNING NS RYTHYM. MEDICATED FOR PAIN. BED IN LOW POSITION FALL PRECAUTIONS IN PLACE. cALL LIGHT WITHIN REACH.
[2020-12-01 20:33] VITALS: BP 148/93
--- NOTE | 2020-12-02 03:07 | NUR ---
PT CARE ASSUMED WITH PT IN BED WATCHING TV.PT AGITATED BECAUSE OF PAIN AND ITCHING.PT IS A/O X4.PT ADMISSION DONE AND ADMISSION ASSESSMENT DONE .PT IS UP WITH STANDBY ASSIST.PT C/O PAIN AND PAIN MANAGED WITH MORPHINE AND TYLENOL.PT PT ALSO USES THE URINAL TO VOID.PT NPO FROM MIDNIGHT WITH SIPS OF FLUID WITH MEDICATION.WILL CONTINUE TO MONITOR PER POC
--- NOTE | 2020-12-02 07:25 | EKG ---
[address] [place] [address] ELECTROCARDIOGRAM REPORT Name: LUDWIG DENG Room #: 458-P [facility]..#: [id number] Admission: 12/01/20 Attend Phys: Edilberto Murphy MD Discharge: Date of : 65 Report #: [id number] 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 : 1965 Requested By: Abel Topete Order Number: [id number] : Robson Santana Measurements Intervals [place] Rate: 118 P: 58 CO: 127 QRS: 37 QRSD: 75 T: 72 QT: 302 QTc: 424 Interpretive Statements Sinus tachycardia Multiple ventricular premature complexes Compared to ECG 11/22/2019 10:35:45 Ventricular premature complex(es) now present Sinus rhythm no longer present Myocardial infarct finding no longer present T-wave abnormality no longer present Electronically Signed On 12-02-2020 7:25:21 CDT by Robson Santana [email or web address] <ELECTRONICALLY SIGNED> By: Robson Santana MD, [facility] 12/02/20 0725 0326 0326 Robson Santana MD, [facility] /EPI
--- NOTE | 2020-12-02 07:28 | EKG ---
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: matt moura : 1965 Requested By: Ron Fowler Order Number: [id number] MD: Robson Santana Measurements Intervals [place] Rate: 88 P: 86 IA: 128 QRS: 17 QRSD: 86 T: 62 QT: 374 QTc: 453 Interpretive Statements Sinus rhythm Anterior infarct, old Compared to ECG 11/22/2019 10:35:45 T-wave abnormality no longer present Myocardial infarct finding still present Electronically Signed On 12-02-2020 7:28:23 CDT by Robson Santana [email or web address] <ELECTRONICALLY SIGNED> By: Robson Santana MD, [facility] 12/02/2028 2220 19 Robson Santana MD, [facility] /EPI
[2020-12-02 07:37] VITALS: BP 138/72
[2020-12-02 08:44] LABS: HEMATOCRIT 39.5 % (42.0-52.0); HEMOGLOBIN 12.8 gm/dL (14.0-18.0); MCHC 32.4 g/dL (28.0-37.0); MCV 104.9 fL (80.0-100.0); RBC 3.77 mil/uL (4.50-6.00); RDW 15.4 % (10.5-14.5); WBC 7.1 thou/uL (4.0-11.0)
[2020-12-02 09:04] LABS: CALCIUM 9.2 mg/dL (8.5-10.1); CREATININE 1.1 mg/dL (0.7-1.3); POTASSIUM 3.5 mmol/L (3.5-5.1)
--- NOTE | 2020-12-02 09:19 | 2DMMODE ---
[facility] [place] [address] 2 D/M-MODE ECHOCARDIOGRAM Name: LUDWIG DENG Room #: 458-P [facility] M.R.#: [id number] Admission: 12/01/20 Attend Phys: Edilberto Murphy MD Discharge: Date of : 65 Report #: [id number] THIS REPORT FOR: cc: Edilberto Murphy MD, Neal A. MD Lammoglia, Francisco J. MD ~ APPROVED REPORT Study performed: 12/01/2020 10:29:53 EXAM: Comprehensive 2D, Doppler, and color-flow Echocardiogram Patient Location: Bedside Room #: ER 10 Status: on-call BSA: 1.62 HR: 80 bpm BP: 132/84 mmHg Rhythm: NSR Other Information Study Quality: Adequate Technically limited study due to lung disease, inability to position patient. Indications COPD Chest Pain Hypertension/HDD HLD 2D Dimensions RVDd: 28.20 mm IVSd: 7.11 (7-11mm) LVOT Diam: 17.80 (18-24mm) LVDd: 40.01 mm PWd: 8.47 (7-11mm) LVDs: 24.90 (25-40mm) Aortic Root: 28.48 mm IVC: 14.00 mm Volumes Left Atrial Volume (Systole) Single Plane 4CH: 41.68 mL Single Plane 2CH: 26.35 mL LA ESV Index: 24.00 mL/m2 Aortic Valve [facility] [employer] [address] [place] [address] 2 D/M-MODE ECHOCARDIOGRAM Name: LUDWIG DENG Room #: 458-P ADM IN M.R.#: [id number] Admission: 12/01/20 Attend Phys: Edilberto Murphy, Discharge: Date of : 65 Report #: [id number] AoV Peak Sergei.: 1.54 m/s AO Peak Gr.: 9.45 mmHg LVOT Max P.05 mmHg LVOT Max V: 0.87 m/s [place] Vmax: 1.41 cm2 AI Vmax: 3.86 m/s AI [place]: 2.80 m/s2 AI PHT: 398.67 ms Mitral Valve E/A Ratio: 1.9 MV Decel. Time: 149.78 ms MV E Max Sergei.: 0.83 m/s MV A Sergei.: 0.44 m/s MV PHT: 43.43 ms IVRT: 48.44 ms Pulmonary Valve PV Peak Sergei.: 0.97 m/s PV Peak Gr.: 3.78 mmHg Pulmonary Vein P Vein S: 0.27 m/s P Vein A: 0.20 m/s P Vein D: 0.61 m/s P Vein A Dur.: 93.4 msec P Vein S/D Ratio: 0.44 Tricuspid Valve RAP Estimate: 5.00 mmHg Left Ventricle The left ventricle is normal size. There is normal LV segmental wall motion. There is normal left ventricular wall thickness. The left ventricular systolic function is normal. The left ventricular ejection fraction is within the normal range. LVEF is 60-65%. Moderate diastolic dysfunction is present (pseudonormal filling). Right Ventricle The right ventricle is normal size. The right ventricular systolic function is normal. Atria The left atrium size is normal. The right atrium size is normal. Aortic Valve The aortic valve is normal in structure. Mild to moderate aortic regurgitation. There is no aortic valvular stenosis. [facility] [employer] [place] [address] 2 D/M-MODE ECHOCARDIOGRAM Name: LUDWIG DENG Room #: 458-P [facility] IN M.R.#: [id number] Admission: 12/01/20 Attend Phys: Edilberto Murphy, Discharge: Date of : 65 Report #: [id number] Mitral Valve The mitral valve is normal in structure. Trace mitral regurgitation. No evidence of mitral valve stenosis. Tricuspid Valve The tricuspid valve is normal in structure. Trace tricuspid regurgitation. Unable to assess PA pressure. Pulmonic Valve The pulmonary valve is normal in structure. There is no pulmonic valvular regurgitation. Great Vessels The aortic root is normal in size. IVC is normal in size and collapses >50% with inspiration. Pericardium There is no pericardial effusion. <Conclusion> The left ventricle is normal size. There is normal left ventricular wall thickness. There is normal LV segmental wall motion. LVEF is 60-65%. The aortic valve is normal in structure. Mild to moderate aortic regurgitation. The mitral valve is normal in structure. Trace mitral regurgitation. The tricuspid valve is normal in structure. Trace tricuspid regurgitation. Unable to assess PA pressure. The aortic root is normal in size. There is no pericardial effusion. <ELECTRONICALLY SIGNED> By: Jonel Newton MD 12/02/20918 8 8 Jonel Newton MD /INF
[2020-12-02 10:27] VITALS: BP 138/72
--- NOTE | 2020-12-02 14:31 | NUR ---
PT ADMITTED RELATED TO HYPOKALEMIA. CM REVIEWED CHART AND SPOKE WITH CARE TEAM. CM MET WITH PT AT BEDSIDE THIS DAY. PT APPEARED TO BE A&O X4. CM ROLE INTRODUCED. PT INDICATED HE LIVE IN A HOUSE ALONE WITH NO STEPS TO ENTER AND NONE INSIDE. 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 PT INDICATED NO HH OR OP THERAPY HX. PT INDICATED HE PLANS TO RETURN HOME ONCE MEDICALLY STABLE. PT HAD ECHO DONE THIS DAY. PT IS AWAITING DR. AYALA TO REVIEW RESULTS OF ECHO. HE ANTICIPATES RETURNING HOME THIS DAY TO SELF CARE. CM FOLLOWING SHOULD ANY DC NEEDS ARISE.
--- NOTE | 2020-12-02 14:46 | NUR ---
ASSUMED CARE OF PATIENT AT SHIFT CHANGE. ASSESSMENT CHARTED. MEDS ADMINISTERED W SMALL SIPS OF WATER. VSS. PATIENT IS A&OX4 AND MAKES NEEDS KNOWN; SBA D/T GOUT PAIN. PATIENT HAD A CARDIAC STRESS TEST DONE THIS DAY. AWAITING RESULTS TO BE ABLE TO DC; DC PENDING ORDERS IN. PATIENT VOICING BACK PAIN AND RECIEVING MORPHINE NEEDED. PATIENT BACK ON REGULAR DIET BUT VOICING WANTING TO LEAVE. TELE DISCONTINUED; IV TO BE DISCONTINUED. PROVIDER REACHED OUT TO CARDIOLOGY NURSE TO EXPEDITE TYPEWRITER TESTER RESULTS. PATIENT OTHERWISE VOICING NO FURTHER NEEDS. WILL CONTINUE TO MONITOR AND FOLLOW PLAN OF CARE
--- NOTE | 2020-12-02 16:32 | NUR ---
THIS RN AGREES WITH THE FRAME BUILDER ASSESSMENT.
== END 2020-12-02 18:25 | disposition home or self-care (01) ==
LOC: ER 22:09 → EROBS 12-01 06:03 → 4W 12-01 06:03 → EROBS 12-01 15:45 → 4W 12-01 16:40
PROVIDERS: Emergency Medicine; Nurse Practitioner Adult Health; Nurse Practitioner Family; ADMIT Family Medicine; ATTEND Family Medicine
DX: R07.89 Other chest pain (principal); K86.1 Other chronic pancreatitis; I10 Essential (primary) hypertension; M54.9 Dorsalgia, unspecified; E87.6 Hypokalemia; J96.00 Acute respiratory failure, unspecified whether with hypoxia or hypercapnia; J44.1 Chronic obstructive pulmonary disease with (acute) exacerbation; Z79.899 Other long term (current) drug therapy
CPT/HCPCS: 10040